=== PATIENT | female | born 1955 | race Caucasian/White ===

== ENCOUNTER 2020-07-01 09:55 | Outpatient (REF) | payer MEDICARE, BC, SELFPAY ==
--- NOTE | 2020-07-01 10:01 | MM_ITS ---
EXAMINATION: MM SCREENING DIGITAL MAMMOGRAPHY, BILATERAL CLINICAL INFORMATION: Screening. Asymptomatic. The lifetime risk of breast cancer based on the Tyrer-Cuzick Model is 5%. COMPARISON: Outside mammography: 08/31/2015, 08/02/2010 ([facility]). TECHNIQUE: Digital mammography is performed in craniocaudal and mediolateral oblique views along with computer-aided detection (CAD). FINDINGS: The breasts are heterogeneously dense, which may obscure small masses (ACR BI-RADS breast composition Category c). There are no significant masses, abnormal calcifications, or other abnormalities. Parenchymal pattern is similar to prior outside studies. The axilla are stable. The skin contours are smooth. Dermal calcifications left areola are stable. MM/MM screening mammo BI IMPRESSION: No significant changes from prior outside exams. ASSESSMENT: BI-RADS 2: Benign RECOMMENDATION: Routine annual mammography screening. This patient's information was entered into a reminder system with a target due date for their next mammogram.
== END 2020-07-01 09:56 | disposition home or self-care (01) ==
LOC: HO.MAMMO 09:55
PROVIDERS: PCP Internal Medicine; Visit Provider Internal Medicine
DX: Z12.31 Encounter for screening mammogram for malignant neoplasm of breast (principal)
CPT/HCPCS: 77067

== ENCOUNTER → 2022-08-24 10:29 | Outpatient (BNVA) | payer MEDICARE, BC, SELFPAY | PROVIDERS: PCP Internal Medicine; Visit Provider Urology | DX: N20.0 Calculus of kidney (principal) | CPT/HCPCS: 51798; 99212 ==

== ENCOUNTER 2022-09-08 08:46 | Outpatient (REF) | payer MEDICARE, BC, SELFPAY ==
--- NOTE | ~2022-09-08 | US_ITS ---
EXAMINATION: US RETROPERITONEAL LIMITED (RENAL ONLY) CLINICAL INFORMATION: Calculus of kidney. COMPARISON: Renals only ultrasound was dated 10/10/2018 and 02/26/2018. TECHNIQUE: Real-time imaging of the kidneys. Imaging is limited due to body habitus. FINDINGS: RIGHT KIDNEY: 9.4 x 3.6 x 4.0 cm (SAG x AP x TRV). The kidney is normal in size, contour, and echogenicity. Renal cortical thickness is normal. No hydronephrosis. At the upper pole, 3 mm and 3 mm nonobstructing calculi are seen. At the interpolar aspect, a 3 mm nonobstructing calculus is seen. At the lower pole, a 3 mm nonobstructing calculus is seen. At the lower pole laterally, an 8 mm anechoic, simple cyst is seen. LEFT KIDNEY: 10.6 x 4.9 x 4.9 cm (SAG x AP x TRV). The kidney is normal in size, contour, and echogenicity. Renal cortical thickness is normal. No hydronephrosis. At the lower pole, a 7 mm shadowing, nonobstructing calculus is seen. At the lower pole laterally, a 7 mm anechoic, simple cyst is seen. US/US renal BI IMPRESSION: 1. Multiple bilateral renal calculi are seen, as detailed. There is no bilateral hydronephrosis. 2. There are simple bilateral renal cysts, for which no imaging follow-up is recommended.
== END 2022-09-08 08:47 | disposition home or self-care (01) ==
LOC: HO.US 08:46
PROVIDERS: PCP Internal Medicine; Visit Provider Urology
DX: N20.0 Calculus of kidney (principal)
CPT/HCPCS: 76775

== ENCOUNTER → 2022-09-28 10:52 | Outpatient (BNVA) | payer MEDICARE, BC, SELFPAY | PROVIDERS: PCP Internal Medicine; Visit Provider Urology | DX: N20.0 Calculus of kidney (principal) | CPT/HCPCS: Q3014 ==

== ENCOUNTER 2023-03-23 07:47 | Outpatient (REF) | payer MEDICARE, BC, SELFPAY ==
--- NOTE | ~2023-03-23 | US_ITS ---
EXAMINATION: US RETROPERITONEAL LIMITED (RENAL ONLY) CLINICAL INFORMATION: Calculus of kidney. COMPARISON: Renal ultrasound 09/08/2022 and 10/10/2018. TECHNIQUE: Real-time imaging of the kidneys. Limited visualization due to bowel gas. FINDINGS: RIGHT KIDNEY: 9.3 x 3.4 x 5.5 cm (SAG x AP x TRV). No hydronephrosis. Renal calculi measure 0.4 cm upper pole, 0.5 cm midpole and 0.5 cm lower pole. Lateral lower pole 7 mm cyst redemonstrated. There is no indication for additional imaging. Renal cortical thickness is normal. LEFT KIDNEY: 11.3 x 4.6 x 5.1 cm (SAG x AP x TRV). There is a 0.5 cm left lower pole calculus. Renal cortical thickness is normal. No hydronephrosis. Left lower pole 0.9 x 0.9 x 0.8 cm lower pole cyst was not identified on the prior exam. US/US renal BI IMPRESSION: Bilateral renal calculi. No hydronephrosis.
== END 2023-03-23 07:48 | disposition home or self-care (01) ==
LOC: HO.US 07:47
PROVIDERS: PCP Internal Medicine; Visit Provider Urology
DX: N20.0 Calculus of kidney (principal)
CPT/HCPCS: 76775

== ENCOUNTER 2023-03-29 09:34 | Outpatient (AMB) | payer MEDICARE, BC, SELFPAY ==
--- NOTE | 2023-03-29 09:34 | MHC.OFFVIS ---
Intake Intake Visit Reasons: 6M US(03/23) Intake Note: Patient is present for Telephone Urology Med: None Antibiotic Allergy: None Blood Thinner: None Pharmacy: [facility] Allergies Iodinated Contrast Media [IVP DYE] Allergy (Severe, Verified 03/29/23 09:35) ANAPHYLAXIS oxycodone [OXYCODONE] Allergy (Unknown, Verified 03/29/23 09:35) ITCHING, itchy ivp dye Allergy (Unknown, Uncoded 03/29/23 09:35) Unknown Medication List - Last Reconciled 03/29/23 by Jayson Aguilar MD alprazolam 0.25 mg PO TID PRN fluocinolone-hydroq.-tretinoin 0.01-4-0.05 % (Tri-Jada) appl topical BEDTIME fluocinonide 0.05% mL topical gabapentin mg PO hydrochlorothiazide 25 mg PO DAILY hydrocodone-acetaminophen 5-325 mg tabs PO ketoconazole 2% appl topical nystatin (Nystop) topical pyridoxine (vitamin B6) 50 mg PO DAILY 90 days spironolactone 25 mg PO DAILY trazodone 50 mg PO BEDTIME HPI HPI Comments History of Present Illness Details Nahomi is a pleasant female. She is a patient of Dr. Lee. She seen for the following urologic conditions - nephrolithiasis Telemedicine Evaluation 15 min Consultation [employer] Skye Video attempted Discussed ultrasound results Small stones Start vitamin B6 Six months imaging Nephrolithiasis Longstanding Prior ESWL which was successful Has been trying to maintain fluid intake with lemon therapy Imaging - 09/18 renal ultrasound 7 mm left, multiple 3 mm stones right - 02/16 renal ultrasound bilateral 3-4 mm stones Urinary urgency and frequency. Prior evaluation. Appears to have settled down once she reduce her gabapentin dose. [facility] Medical History Autoimmune disorder HTN (hypertension) Renal stones Urgency incontinence Surgical History History of delivery History of surgery Social History Patient Tobacco Use Status: Never used Tobacco Review of Systems Const All systems reviewed & are unremarkable except as noted in HPI and below Reports no additional complaints Resp Reports no additional complaints GI Reports no additional complaints Reports as per HPI [facility] [place] Reports no additional complaints Physical Exam Telemedicine evaluation Appropriate responses Regular breathing rate and rhythm HEENT Head: Yes normal to inspection Ears: hearing grossly normal bilaterally Eyes General: appearance normal, both eyes and all related structures Neck Neck: Yes normal visual inspection Chest Chest palpation & inspection: normal inspection of the chest Resp Effort & Inspection: normal respiratory effort and able to speak in complete sentences Assessment & Plan Assessment & Plan (1) Renal stones: Code(s): N20.0 - Calculus of kidney Plan Six month follow-up Orders: Orders US renal BI 6 Months N20.0 - Calculus of kidney Medications: New pyridoxine (vitamin B6) 50 mg PO DAILY 90 days 90 tabs 1RF N20.0 - Calculus of kidney Patient Instructions: Imaging studies, laboratory and physical exam results were discussed and reviewed in detail. No major barriers to patient understanding were identified. An opportunity to ask questions regarding the treatment plan was provided. All questions were answered. The patient expressed understanding and agreement with the above treatment plan. The patient is aware they should contact our office by phone for worsening of their current condition or the appearance of new urologic symptoms. Compliance is encouraged with any medications and followup testing that is ordered. It is a privilege to participate in the urologic care of your patient. If you have any questions or concerns regarding treatment for the above conditions, or other urologic issues, please do not hesitate to contact me. The office telephone contact is [phone]. This note is constructed using voice recognition software. While every effort has been made to ensure accuracy production reproduction manager errors may have been included. Yours sincerely, Dr Jayson Aguilar MD, MUKESH [facility] - Urology Providers of Expert, Compassionate Care for the Genitourinary System Telehealth Telehealth Location of provider rendering services: practice address Location of patient: address on file Patient Identification confirmed using: Name, : Yes Telehealth method: video Patient verbally consented to treatment: Yes Patient verbally consented to billing insurance company: Yes Patient informed of any privacy concerns related to visit: Yes Coding Level of Care Code Tele Est Pt Level 3 (97517) Diagnoses Renal stones N20.0
== END 2023-03-29 09:53 | disposition home or self-care (01) ==
LOC: HO.HUSH 09:34
PROVIDERS: PCP Internal Medicine; Visit Provider Urology
DX: N20.0 Calculus of kidney (principal)
CPT/HCPCS: 99213

== ENCOUNTER → 2023-03-29 09:34 | Outpatient (BNVA) | payer MEDICARE, BC, SELFPAY | PROVIDERS: PCP Internal Medicine; Visit Provider Urology | DX: N20.0 Calculus of kidney (principal) | CPT/HCPCS: Q3014 ==

== ENCOUNTER 2023-10-29 08:17 | Outpatient (REF) | payer MEDICARE, BC, SELFPAY ==
--- NOTE | ~2023-10-29 | US_ITS ---
EXAMINATION: US RETROPERITONEAL LIMITED (RENAL ONLY) CLINICAL INFORMATION: Calculus of kidney. COMPARISON: Renal ultrasound 03/23/2023 and 09/08/2022. TECHNIQUE: Real-time imaging of the kidneys. Limited visualization due to bowel gas. FINDINGS: RIGHT KIDNEY: 9.5 x 3.8 x 4.1 cm (SAG x AP x TRV). Multiple renal calculi, largest measured midpole 2 mm. No hydronephrosis. Limited visualization. A 0.7 cm yol-ds-myvql pole cyst redemonstrated. There is no indication for follow-up imaging at this time. LEFT KIDNEY: 11.1 x 4.0 x 3.7 cm (SAG x AP x TRV). A 3 mm mid pole calculus. No hydronephrosis. Limited visualization. No hydronephrosis. A 0.9 x 1.0 x 0.8 cm lateral mid pole cyst redemonstrated. There is no indication for follow-up imaging at this time. Ultrasound of 09/08/2022 demonstrated a 0.7 cm lateral lower pole cyst which measured 0.7 cm on 03/23/2023. ADDITIONAL FINDINGS: Incidental note on limited views of a 1.6 x 1.5 x 1.7 cm soft tissue mass adjacent to splenic hilum, likely representing a splenule. US/US renal BI IMPRESSION: 1. Bilateral nonobstructive renal calculi. No hydronephrosis. 2. Incidental note on limited views of a 1.6 x 1.5 x 1.7 cm soft tissue mass adjacent to splenic hilum, likely representing a splenule.
== END 2023-10-29 08:18 | disposition home or self-care (01) ==
LOC: HO.US 08:17
PROVIDERS: PCP Internal Medicine; Visit Provider Urology
DX: N20.0 Calculus of kidney (principal)
CPT/HCPCS: 76775

== ENCOUNTER 2023-11-07 08:39 | Outpatient (AMB) | payer MEDICARE, BC, SELFPAY ==
--- NOTE | 2023-11-07 08:41 | A.OFFVIS_ITS ---
Intake Intake Visit Reasons: 6M US(set)Confirmed Intake Note: Patient presents today for a follow-up ON U/S Meds- Vitamin B6 Allergies to Antibiotic- No Known Allergies Blood Thinner- None Point Of Care Technician Required: No Allergies Iodinated Contrast Media [IVP DYE] Allergy (Severe, Verified 11/07/23 08:43) ANAPHYLAXIS oxycodone [OXYCODONE] Allergy (Unknown, Verified 11/07/23 08:43) ITCHING, itchy ivp dye Allergy (Unknown, Uncoded 11/07/23 08:43) Unknown Medication List - Last Reconciled 11/07/23 by Jayson Aguilar MD alprazolam 0.25 mg PO TID PRN fluocinolone-hydroq.-tretinoin 0.01-4-0.05 % (Tri-Jada) appl topical BEDTIME fluocinonide 0.05% mL topical gabapentin mg PO hydrochlorothiazide 25 mg PO DAILY hydrocodone-acetaminophen 5-325 mg tabs PO ketoconazole 2% appl topical nystatin (Nystop) topical pyridoxine (vitamin B6) 50 mg PO DAILY 90 days spironolactone 25 mg PO DAILY trazodone 50 mg PO BEDTIME HPI HPI Comments History of Present Illness Details Nahomi is a pleasant female. She is a patient of Dr. Lee. She seen for the following urologic conditions - nephrolithiasis Telemedicine Evaluation 15 min Consultation [employer] Skye Video attempted Six-month follow-up Has been on vitamin B6 Discussed imaging - reduced stone burden Twelve month follow-up imaging Nephrolithiasis Longstanding Prior ESWL which was successful Has been trying to maintain fluid intake with lemon therapy Imaging - 09/18 renal ultrasound 7 mm left, multi ple 3 mm stones right - 02/16 renal ultrasound bilateral 3-4 mm stones - 11/17 renal ultrasound bilateral 2 mm s tones. Reduce stone burden Urinary urgency and frequency. Prior evaluation. Appears to have settled down once she reduce her gabapentin dose. [facility] Medical History Autoimmune disorder HTN (hypertension) Urgency incontinence Renal stones Surgical History History of surgery History of delivery Social History Patient Tobacco Use Status: Never used Tobacco Review of Systems Const All systems reviewed & are unremarkable except as noted in HPI and below Reports no additional complaints Resp Reports no additional complaints GI Reports no additional complaints Reports as per HPI [facility] Reports no additional complaints Physical Exam Telemedicine evaluation Appropriate responses Regular breathing rate and rhythm HEENT Head: Yes normal to inspection Ears: hearing grossly normal bilaterally Eyes General: appearance normal, both eyes and all related structures Neck Neck: Yes normal visual inspection Chest Chest palpation & inspection: normal inspection of the chest Resp Effort & Inspection: normal respiratory effort and able to speak in complete sentences Assessment & Plan Assessment & Plan (1) Renal stones: Code(s): N20.0 - Calculus of kidney Plan Twelve month follow-up renal ultrasound Orders: Orders US renal BI 12 Months N20.0 - Calculus of kidney Medications: Refilled pyridoxine (vitamin B6) 50 mg PO DAILY 90 days 90 tabs 3RF N20.0 - Calculus of kidney Patient Instructions: Imaging studies, laboratory and physical exam results were discussed and reviewed in detail. No major barriers to patient understanding were identified. An opportunity to ask questions regarding the treatment plan was provided. All questions were answered. The patient expressed understanding and agreement with the above treatment plan. The patient is aware they should contact our office by phone for worsening of their current condition or the appearance of new urologic symptoms. Compliance is encouraged with any medications and followup testing that is ordered. It is a privilege to participate in the urologic care of your patient. If you have any questions or concerns regarding treatment for the above conditions, or other urologic issues, please do not hesitate to contact me. The office telephone contact is [phone]. This note is constructed using voice recognition software. While every effort has been made to ensure accuracy leather toggler errors may have been included. Yours sincerely, Dr Jayson Aguilar MD, MUKESH [facility] - Urology Providers of Expert, Compassionate Care for the Genitourinary System Telehealth Telehealth Location of provider rendering services: practice address Location of patient: address on file Patient Identification confirmed using: Name, : Yes Telehealth method: video Patient verbally consented to treatment: Yes Patient verbally consented to billing insurance company: Yes Patient informed of any privacy concerns related to visit: Yes Coding Level of Care Code Tele Est Pt Level 3 (04969) Diagnoses Renal stones N20.0
== END 2023-11-07 09:12 | disposition home or self-care (01) ==
LOC: HO.HUSH 08:40
PROVIDERS: PCP Internal Medicine; Visit Provider Urology
DX: N20.0 Calculus of kidney (principal)
CPT/HCPCS: 99213

== ENCOUNTER → 2023-11-07 08:39 | Outpatient (BNVA) | payer MEDICARE, BC, SELFPAY | PROVIDERS: PCP Internal Medicine; Visit Provider Urology ==

== ENCOUNTER 2024-10-25 11:08 | Outpatient (REF) | payer MEDICARE, BC, SELFPAY ==
[2024-10-25 13:40] LABS: MANUAL DIFF FLAG NO
[2024-10-25 13:41] LABS: Basophils Absolute Auto 0.1 X10*3/uL (0.0-0.2); Basophils Percent Auto 0.7 % (0-2); Eosinophils Absolute Auto 0.2 X10*3/uL (0.0-0.4); Eosinophils Percent Auto 2.5 % (0-4); Hematocrit 42.4 % (37.0-47.0); Hemoglobin 14.3 g/dl (12.0-16.0); Imm Gran Abs Auto 0.02 X10*3/uL (0.00-0.03); Imm Gran Pct Auto 0.3 % (0.0-0.4); Lymphocytes Absolute Auto 2.3 X10*3/uL (1.2-4.9); Lymphocytes Percent Auto 31.9 % (20-40); Mean Corpuscular HGB Conc 33.7 g/dl (31.0-35.0); Mean Corpuscular Hemoglobin 28.8 pg (27.0-33.0); Mean Corpuscular Volume 85.5 fL (80.0-98.0); Monocytes Absolute Auto 0.5 X10*3/uL (0.1-1.2); Monocytes Percent Auto 6.8 % (2-11); Neutrophils Absolute Auto 4.2 x10*3/uL (2.0-8.3); Neutrophils Percent Auto 57.8 % (45-73); Platelet Count 281 X10*3/uL (160-400); Red Blood Count 4.96 X10*6/uL (4.20-5.50); Red Cell Distribution Width 13.7 % (11.0-16.0); White Blood Count 7.2 X10*3/uL (4.8-10.8)
[2024-10-25 13:53] LABS: Alanine Aminotransferase 22 U/L (0-31); Albumin Level 4.2 g/dL (3.5-5.0); Alkaline Phosphatase 106 U/L (39-117); Anion Gap 13 (12-20); Aspartate Amino Transferase 24 U/L (5-31); Bilirubin Total 0.7 mg/dL (0.0-1.0); Blood Urea Nitrogen 17 mg/dL (9-16); Calcium 9.5 mg/dL (8.4-10.2); Carbon Dioxide 26 mmol/L (22-29); Chloride 104 mmol/L (96-108); Cholesterol 159 mg/dL (<200); Estimated Glomerular Filt Rate > 60; Glucose Random 119 mg/dL (60-115); HDL Cholesterol 47 mg/dL (>40); LDL Cholesterol Calculated 83 mg/dL (<100); Potassium 3.2 mmol/L (3.3-5.1); Sodium 140 mmol/L (135-145); Total Protein 7.1 g/dL (6.5-8.0); Triglycerides 145 mg/dL (<150)
== END 2024-10-25 11:09 | disposition home or self-care (01) ==
LOC: HO.HMGCLDS 11:08
PROVIDERS: PCP Internal Medicine; Visit Provider Internal Medicine
DX: E78.00 Pure hypercholesterolemia, unspecified (principal); I10 Essential (primary) hypertension; G62.9 Polyneuropathy, unspecified; G35 Multiple sclerosis
CPT/HCPCS: 36415; 80053; 80061; 85025

== ENCOUNTER 2024-10-29 12:10 | Outpatient (REF) | payer MEDICARE, BC, SELFPAY ==
--- NOTE | ~2024-10-29 | US_ITS ---
CLINICAL HISTORY: N20.0 - Calculus of kidney US Renal Comparison: None Findings: Right kidney normal size and echotexture, 9.6 cm length. Left kidney normal size and echotexture, 11.1 cm length. No hydronephrosis. Two small bilateral renal simple cysts measuring up to 11 mm. At least a few small (up to 5 mm) nonobstructive left renal stones, and questionable small nonobstructive right renal stones. IMPRESSION: No hydronephrosis. At least a few small (up to 5 mm) nonobstructive left renal stones, and questionable small nonobstructive right renal stones. This document has been electronically signed by: Flavia Rondon MD on 10/31/2024 05:59:41
--- OUTSIDE RECORDS SUMMARY | 2024-10-29 14:33 | XMS_ITS | Continuity of Care Document ---
Author Organization [facility] Gopi Brower Roel lt Address [address] [place] [address]- Care Team Providers Care Park Naturalist Name Role Phone Rosa SANCHEZ, Emiliano Allen Primary Care Physician [phone] [place] [facility] Date(s): 09/26/24 - 10/26/24 [facility] [place] [address] [place] [address]- Encounter Type: Triage Allergies, Adverse Reactions, Alerts Substance Criticality Severity Reaction Reaction Severity Status contrast media (iodine-based) Active Immunizations Given and Recorded Vaccine Date Status Refusal Reason pneumococcal 20-valent conjugate vaccine 07/10/23 Given influenza virus vaccine, inactivated 05/14/23 You rded influenza virus vaccine, inactivated 05/17/22 You rded influenza virus vaccine, inactivated 05/09/21 You rded influenza virus vaccine, inactivated 05/25/20 You rded influenza virus vaccine, inactivated 05/07/18 You rded influenza virus vaccine, inactivated 05/09/16 You rded influenza virus vaccine, inactivated 06/16/15 You rded influenza virus vaccine, inactivated 07/07/13 You rded influenza virus vaccine, inactivated 07/08/12 You rded SARS-CoV-2(COVID-19)mRNA-LNP vac([id number]) 05/14/23 Recorded [id number] 12y+ bivalent booster vax 01/04/23 Recorded [id number] 12y+ bivalent booster vax 05/17/22 Recorded SARS-CoV-2 mRNA ([id number]) vax 12/26/21 Recorded tetanus/diphtheria/pertussis, acel(Tdap) 06/25/21 Recorded SARS-CoV-2 (COVID-19) mRNA BNT-162b2 vac 06/01/21 Recorded SARS-CoV-2 (COVID-19) mRNA BNT-162b2 vac 11/27/20 Given SARS-CoV-2 (COVID-19) mRNA BNT-162b2 vac 11/06/20 Given zoster vaccine, inactivated 10/30/18 Recorded pneumococcal 23-valent vaccine 06/25/18 Recorded pneumococcal 13-valent vaccine 10/24/16 Recorded Medications acetaminophen-HYDROcodone 325 mg-5 mg oral tablet 1 tablet, By Mouth, Every 6 hours, PRN as needed for pain, # 90 each, 0 Refills, Maintenance, 06/06/24 2:40:00 PM EDT, Tablet, [facility] #[id number], Partial fill upon patient request if the prescription is for a schedule II opioid drug., 1 tablet By Mouth Every 6 hours,PRN:as needed for pain, 06/06/24, 150, cm, 01/23/24 7:54:00 EDT, Height, 59.7, kg, 06/11/23 13:16:00 EDT, Dry Weight Start Date: 06/06/24 Status: Ordered Quantity: 90.0 Unit: each Repeat number: 1 ALPRAZolam 0.25 mg oral tablet 0.25 mg, 1, tablet, By Mouth, 3 times a day, PRN, # 90 tablet, Refills 0, Tot. Refills 0, Maintenance, as needed for anxiety, 07/03/24 11:45:00 AM EST, Route to Pharmacy Electronically, [facility] #[id number], Partial fill upon patient request if the prescription is for a schedule II opioid drug., 150, cm, 01/23/24 7:54:00 EDT, Height, 59.7, kg, 06/11/23 13:16:00 EDT, Dry Weight Start Date: 07/03/24 Status: Ordered Quantity: 90.0 Unit: tablet Repeat number: 1 hydrochlorothiazide 25 mg oral tablet 1, tablet, By Mouth, Daily, # 90 tablet, Refills 1, Tot. Refills 1, Maintenance, 09/26/24 11:36:00 AM EST, Route to Pharmacy Electronically, [facility] #[id number], 150, cm, 01/23/24 7:54:00 EDT,Height, 59.7, kg, 06/11/23 13:16:00 EDT, Dry Weight Start Date: 09/26/24 Status: Ordered Quantity: 90.0 Unit: tablet Repeat number: 2 ketoconazole 2% topical cream Topically, Daily, 0 Refills, Maintenance, 05/29/22 8:43:00 AM EDT, Partial fill upon patient requestif the prescription is for a schedule II opioid drug. Start Date: 05/29/22 Status: Ordered Repeat number: 1 Multivitamin By Mouth, Daily, 0 Refills, Maintenance, 03/20/13 9:16:19 AM EDT Start Date: 03/20/13 Status: Ordered Repeat number: 1 Neurontin 600 mg oral tablet 1 tablet = 600 mg, By Mouth, 3 times a day, PRN neuropathy pain, # 270 tablet, 3 Refills, Maintenance, 02/01/22 8:13:00 AM EDT, Tablet, [facility] #[id number], Partial fill upon patient request ifthe prescription is for a schedule II opioid drug., 150, cm, 02/01/22 8:03:00 EDT, Height Start Date: 02/01/22 Stop Date: 01/27/23 Status: Ordered Quantity: 270.0 Unit: tablet Repeat number: 4 rosuvastatin 5 mg oral tablet 1 tablet, By Mouth, Daily, # 90 tablet, 1 Refills, Maintenance, 06/28/24 10:58:00 AM EDT, [facility] #[id number], 150, cm, 01/23/24 7:54:00 EDT, Height, 59.7, kg, 06/11/23 13:16:00 EDT, Dry Weight Start Date: 06/28/24 Status: Ordered Quantity: 90.0 Unit: tablet Repeat number: 1 sertraline 25 mg oral tablet 1 tablet, By Mouth, Daily, # 90 tablet, 3 Refills, Maintenance, 06/30/24 8:44:00 AM EST, [facility] #[id number], 150, cm, 01/23/24 7:54:00 EDT, Height, 59.7, kg, 06/11/23 13:16:00 EDT, Dry Weight Start Date: 06/30/24 Status: Ordered Quantity: 90.0 Unit: tablet Repeat number: 1 spironolactone 25 mg oral tablet 1, tablet, By Mouth, Daily, # 90 tablet, Refills 1, Tot. Refills 1, Maintenance, 09/26/24 11:36:00 AM EST, Route to Pharmacy Electronically, [facility] #[id number], 150, cm, 01/23/24 7:54:00 EDT,Height, 59.7, kg, 06/11/23 13:16:00 EDT, Dry Weight Start Date: 09/26/24 Status: Ordered Quantity: 90.0 Unit: tablet Repeat number: 2 traZODone 50 mg oral tablet 1, tablet, By Mouth, Daily at bedtime, # 90 tablet, Refills 1, Maintenance, 07/09/23 10:19:00 AM EST, Route to Pharmacy Electronically, [facility] #[id number], 150, cm, 06/11/23 13:16:00 EDT, Height, 59.7, kg, 06/11/23 13:16:00 EDT, Dry Weight Start Date: 07/09/23 Status: Ordered Quantity: 90.0 Unit: tablet Repeat number: 1 Vitamin B12 0 Refills, Maintenance, 07/10/23 2:24:00 PM EST, Partial fill upon patient request if the prescription is for a schedule II opioid drug. Start Date: 07/10/23 Status: Ordered Repeat number: 1 Problem List Condition Confirmation Course Effective Dates Status Health Status Informant Adenomatous polyp of colon 1 Confirmed Active Anxiety Confirmed Active Benign hypertension Confirmed Active IPMN (intraductal papillary mucinous neoplasm) Confirmed Active Chronic low back pain Confirmed Active Renal cyst Confirmed Active Osteoarthritis, generalized Confirmed Active Glucose intolerance Confirmed Active H/O insomnia Confirmed Active Liver hemangioma Confirmed Active Hypercholesterolemia Confirmed Active High blood pressure Confirmed Active Nephrolithiasis Confirmed Active Multiple sclerosis Confirmed Active Palpitations - rapid Confirmed Active Encounter for well woman exam with routine gynecological exam Confirmed Active Neuropathy, peripheral Confirmed Active Severe obesity (BMI 35.0-39.9) with comorbidity Confirmed Active 1Colonoscopy 2020 positive polyp, repeat 2025. Social History Social History Type Response Smoking Status Never (less than 100 in lifetime) entered on: 02/01/22 Sex Sex Representation Female (finding) Patient Care team information Care Team Personnel Name: Rosa SANCHEZ, Emiliano Allen Position: S Physician - Primary Care Member Role: PCP Address: [address] [place] [id number] Telecom: Care Team Related Persons Name: GERSON DE LA CRUZ Insurance Providers Guarantor name: ILENE SIMMONS Health Plan Information #: 1 Payer: MEDICARE PART B OUTPT Member Number: NA Policy Number: NA Group Number: NA Health Plan Information #: 2 Payer: [employer] Member Number: NA Policy Number: NA Group Number: NA
== END 2024-10-29 12:11 | disposition home or self-care (01) ==
LOC: HO.US 12:10
PROVIDERS: PCP Internal Medicine; Visit Provider Urology
DX: N20.0 Calculus of kidney (principal)
CPT/HCPCS: 76775

== ENCOUNTER → 2024-10-29 12:12 | Outpatient (BNV) | payer MEDICARE, BC, SELFPAY | PROVIDERS: PCP Internal Medicine; Visit Provider Radiology Diagnostic Radiology | DX: N20.0 Calculus of kidney (principal) | CPT/HCPCS: 76775 ==

== ENCOUNTER 2024-11-21 13:09 | Outpatient (AMB) | payer MEDICARE, BC, SELFPAY ==
--- NOTE | 2024-11-21 13:09 | A.OFFVIS_ITS ---
Intake Visit Reasons: 1y/US Intake Note: Pt presents to the office today as a telehealth appt for a 1 year/US. Allergies Iodinated Contrast Media [IVP DYE] Allergy (Severe, Verified 11/21/24 13:10) ANAPHYLAXIS oxycodone [OXYCODONE] Allergy (Unknown, Verified 11/21/24 13:10) ITCHING, itchy ivp dye Allergy (Unknown, Uncoded 11/21/24 13:10) Unknown HPI Comments Details: Nahomi is a pleasant female. She is a patient of Dr. Lee. She seen for the following urologic conditions - nephrolithiasis Telemedicine Evaluation 15 min Consultation DoximMedPro Skye Video attempted Has been on vitamin B6 Discussed imaging - reduced stone burden Twelve month follow-up imaging Nephrolithiasis Longstanding Prior ESWL which was successful Has been trying to maintain fluid intake with lemon therapy Imaging - 09/18 renal ultrasound 7 mm left, multiple 3 mm stones right - 02/16 renal ultrasound bilateral 3-4 mm stones - 11/17 renal ultrasound bilateral 2 mm stones. Reduce stone burden - 11/18 renal ultrasound bilateral stones Urinary urgency and frequency. Prior evaluation. Appears to have settled down once she reduce her gabapentin dose. [facility] Medical History Autoimmune disorder HTN (hypertension) Urgency incontinence Renal stones Surgical History History of surgery History of delivery Social History Patient Tobacco Use Status: Never used Tobacco Review of Systems Const All systems reviewed & are unremarkable except as noted in HPI and below Reports no additional complaints Resp Reports no additional complaints GI Reports no additional complaints Reports as per HPI Musc Reports no additional complaints Physical Exam Telemedicine evaluation Appropriate responses Regular breathing rate and rhythm HEENT Head: Yes normal to inspection Ears: hearing grossly normal bilaterally Eyes General: appearance normal, both eyes and all related structures Neck Neck: Yes normal visual inspection Chest Chest palpation & inspection: normal inspection of the chest Resp Effort & Inspection: normal respiratory effort and able to speak in complete sentences Telehealth Telehealth Telehealth Platform: Telephone Location of provider rendering services: practice address Location of patient: address on file Patient Identification confirmed using: Name, : Yes Telehealth method: voice only Patient verbally consented to treatment: Yes Patient verbally consented to billing insurance company: Yes Patient informed of any privacy concerns related to visit: Yes Assessment & Plan Assessment & Plan (1) Renal stones: Code(s): N20.0 - Calculus of kidney Category: Medical Plan Refill medications Yearly review Orders: Orders US renal BI 12 Months N20.0 - Calculus of kidney Medications: Refilled pyridoxine (vitamin B6) 50 mg PO DAILY 90 days 90 tabs 3RF N20.0 - Calculus of kidney Patient Instructions: This note is constructed using voice recognition software. While every effort h as been made to ensure accuracy delivery technician errors may have been included. Imaging studies, laboratory and physical exam results were discussed and reviewed in detail. No major barriers to patient understanding were identified. An opportunity to ask questions regarding the treatment plan was provided. All questions were answered. The patient expressed understanding and agreement with the above treatment plan. The patient is aware they should contact our office by phone for worsening of their current condition or the appearance of new urologic symptoms. Compliance is encouraged with any medications and followup testing that is ordered. It is a privilege to participate in the urologic care of your patient. If you have any questions or concerns regarding treatment for the above conditions, or other urologic issues, please do not hesitate to contact me. The office telephone contact is [phone]. Sincerely, Dr Jayson Aguilar MD, MUKESH [facility] - Urology Compassionate Specialist Care for the Genitourinary System Coding Level of Care Code Est Pt Level 4 (16143) Complex EM visit Add On G2211 Diagnoses Renal stones N20.0
== END 2024-11-21 14:26 | disposition home or self-care (01) ==
LOC: HO.HUSH 13:09
PROVIDERS: PCP Internal Medicine; Visit Provider Urology
DX: N20.0 Calculus of kidney (principal)
CPT/HCPCS: 99214; G2211

== ENCOUNTER → 2024-11-21 13:09 | Outpatient (BNVA) | payer MEDICARE, BC, SELFPAY | PROVIDERS: PCP Internal Medicine; Visit Provider Urology | DX: N20.0 Calculus of kidney (principal) | CPT/HCPCS: 99212 ==

== ENCOUNTER 2025-05-29 08:45 | Outpatient (REF) | payer MEDICARE, BC, SELFPAY ==
--- OUTSIDE RECORDS SUMMARY | 2025-05-29 09:09 | XMS_ITS | Clinical Summary ---
Author Organization [facility] Address [address] [place] [address] Care Team Providers Care Box Maker Name Role Phone Emiliano Lee MD Primary Care Provider [phone] Allergies Active Allergy Reactions Criticality Noted Date Comments Iodinated Contrast Media Unknown/Patient and Family Unable to Define Medium 11/27/2001 Oxycodone-Acetaminophen Itching Low 08/05/2015 Medications ALPRAZolam (XANAX) 0.25 MG tablet Take 0.25 mg by mouth. 5 Active gabapentin (NEURONTIN) 600 MG tablet TAKE 1 TABLET BY MOUTH THREE TIMES DAILY NEEDED FOR NERVE PAIN Active ketoconazole (NIZORAL) 2 % cream APPLY TWICE DAILY TO AFFECTED AREAS UNTIL CLEAR 5 Active Klayesta 898135 UNIT/GM powder 5 Active Vitamin B6 50 MG tablet Take 50 mg by mouth. 5 Active rosuvastatin (CRESTOR) 5 MG tablet Take 5 mg by mouth. Active sertraline (ZOLOFT) 25 MG tablet Take 25 mg by mouth daily. Active spironolactone (ALDACTONE) 25 MG tablet Take 25 mg by mouth daily. Active HYDROcodone-malathi taminophen (NORCO) 5-325 mg per tablet Take 1 tablet by mouth 4 times daily (every 6 hours) as needed for severe pain. Active HYDROcodone-malathi taminophen (NORCO) 5-325 mg per tablet Take 1 tablet by mouth. 5 05/04/20 25 Discontinu ed(Med List Clean-up/O ld Med - No E-Cancel/N o AVS) Encounters Date Type Department Care Team Description 05/04/2025 2:30 PM EDT Consult [address] [place] [address] Otoniel Mendiola MD IPMN (intraductal papillary mucinous neoplasm) (Primary Dx); History of colon polyps 05/04/2025 Orders Only [facility] [address] [facility] [address] [address] [place] [address] Maria E Sanchez MA from Last 3 Months Family History Medical History Relation Name Comments Hypertension Father Lung cancer Father Stroke Father Heart attack Maternal Grandfather Heart disease Maternal Grandfather Hypertension Maternal Grandfather Stroke Maternal Grandmother Breast cancer Mother Multiple sclerosis Mother Thyroid cancer Mother Colon cancer Other Hypertension Paternal Grandfather Pancreatic cancer Paternal Grandfather Multiple sclerosis Sister Relation Name Status Comments Father Maternal Grandfather Maternal Grandmother Mother Other Paternal Grandfather Sister Social History Tobacco Use Types Packs/Day Years Used Date Smoking Tobacco: Never Smokeless Tobacco: Never Tobacco Cessation:Counseling Given: Not Answered Alcohol Use Standard Drinks/Week Comments Yes 2 (1 standard drink = 0.6 oz pur e alcohol) Comments Unknown Sex and Gender Information Value Date Recorded Sex Assigned at Not on file Legal Sex Female 2:52 PM EDT Gender Identity Not on file Sexual Orientation Not on file Last Filed Vital Signs Vital Sign Reading Time Taken Comments Blood Pressure 118/86 05/04/2025 2:32 PM EDT Pulse - - Temperature - - Respiratory Rate - - Oxygen Saturation - - Inhaled Oxygen Concentration - - Weight 78.9 kg (174 lb) 05/04/2025 2:32 PM EDT Height 152.4 cm (5') 05/04/2025 2:32 PM EDT Body Mass Index 33.98 05/04/2025 2:32 PM EDT Plan of Treatment Health Maintenance Due Date Last Done Comments Advance Care Planning 1955 Hepatitis C Virus Screening 1955 DTaP/Tdap/Td Vaccines (1 - Tdap) 1973 Mammogram 1994 Colonoscopy 1999 Pneumococcal Vaccines 50+ (1 of 1 - PCV) 2004 Zoster (Shingles) Vaccine (1 of 2) 2004 RSV Vaccine 60 years and older and Patients (1 - Risk 60-74 years 1-dose series) 2014 DXA Bone Density (Females,Ages 65 and older) 2019 Influenza Vaccine 03/27/2025 05/16/2024, , 05/17/2022, Additional history exists COVID-19 Vaccine ( season) 2025 05/16/2024, 05/14/2023, 12/26/2021, Additional history exists Hepatitis B Vaccines Aged Out No long er eligible based on patient's age to complete this topic Insurance [facility] MEDICARE PART A & B Care Teams Box Maker Relationship Specialty Start Date End Date Emiliano Lee MD [address] [place] [id number] PCP - General Internal Medicine 01/12/25
--- OUTSIDE RECORDS SUMMARY | 2025-05-29 09:10 | XMS_ITS | Encounter Summary ---
Author Organization [facility] Address [address] [place] [address] Phone Care Team Providers Care Take Off Worker Name Role Phone Carrol Stinson MD Primary Care Provi mady Unknown, Unknown Primary Care Provider Jadiel diaz Encounter Details Date Type Department Care Team (Late st Contact Info) Description 06/22/2021 Procedure Pass [facility] Endoscopy Admitting Dept Virtual Department [address] [place] [address] Social History Tobacco Use Types Packs/Day Years Used Date Smoking Tobacco: Never Smokeless Tobacco: Never Alcohol Use Standard Drinks/Week Comments Yes 1 (1 standard drink = 0.6 oz pur e alcohol) Comments Unknown Sex and Gender Information Value Date Recorded Sex Assigned at Not on file Legal Sex Female 6:21 PM EST Gender Identity Not on file Sexual Orientation Not on file documented as of this encounter Plan of Treatment Not on file documented as of this encounter Visit Diagnoses Not on filedocumented in this encounter Care Teams Take Off Worker Relationship Specialty Start Date End Date Carrol Stinson MD [email or web address] PCP - General Internal Medicine 09/28/17 Unknown, Unknown, PCP - General 08/04/22 documented as of this encounter Additional Source Comments The information contained in this document represents components of the legal health record. It is not the complete legal health record.[facility]
--- OUTSIDE RECORDS SUMMARY | 2025-05-29 09:11 | XMS_ITS | Encounter Summary ---
Author Organization [facility] Address [address] [place] [address] Phone Care Team Providers Care Second Grade Teacher Name Role Phone Carrol Stinson MD Primary Care Provi mady Unknown, Unknown Primary Care Provider Jadiel diaz Encounter Details Date Type Department Care Team (Late st Contact Info) Description 06/11/2018 Transcribe Orders [facility] Laboratory [address] [place] [address] Carrol Stinson MD [address] [place], [place] [id number] [email or web address] Pancreatic abnormality (Primary Dx) Social History Tobacco Use Types Packs/Day Years Used Date Smoking Tobacco: Never Smokeless Tobacco: Never Comments Unknown Sex and Gender Information Value Date Recorded Sex Assigned at Not on file Legal Sex Female 6:21 PM EST Gender Identity Not on file Sexual Orientation Not on file documented as of this encounter Plan of Treatment Not on file documented as of this encounter Results * (ABNORMAL) 25-OH vitamin D (06/11/2018 11:25 AM EDT) 25 OH VIT D (TOTAL) 26(L) 30 - 60 ng/mL [facility] Blood 06/11/2018 11:2 5 AM EDT 06/11/2018 11:39 AM EDT us Carrol Stinson MD LAB BLOOD ORDERABLE S Final Result [address] [address] * Vitamin B12 (06/11/2018 11:25 AM EDT) VITAMIN B12 580 232 - 1,245 pg/mL [facility] Blood 06/11/2018 11:2 5 AM EDT 06/11/2018 11:39 AM EDT Carrol Stinson MD LAB BLOOD ORDERABLE S Final Result Performing Organization Address City/[facility]/ZIP Co de Phone Number [address] [address] * TSH with reflex (06/11/2018 11:25 AM EDT) TSH 1.89 0.27 - 4.20 uIU/mL [facility] Blood 06/11/2018 11:2 5 AM EDT 06/11/2018 11:39 AM EDT us Carrol Stinson MD LAB BLOOD ORDERABLE S Final Result Performing Organization Address City/[facility]/ZIP Co de Phone Number [address] [address] * (ABNORMAL) Comprehensive metabolic panel (06/11/2018 11:25 AM EDT) SODIUM 143 133 - 146 mmol/L [facility] POTASSIUM 3.2(L) 3.3 - 5.1 mmol/L [facility] CHLORIDE 100 96 - 108 mmol/L [facility] CO2 31 21 - 35 mmol/L [facility] BUN 12 6 - 19 mg/dL [facility] CREATININE 0.70 0.5 - 1.5 mg/dL [facility] GLUCOSE 96 70 - 99 mg/dL [facility] ALBUMIN 4.1 3.9 - 4.8 g/dL [facility] TOTAL PROTEIN 6.0(L) 6.5 - 8.0 g/dL [facility] CALCIUM 9.1 8.4 - 10.3 mg/dL [facility] ALKALINE PHOSPHATASE 101 39 - 117 U/L [facility] TOTAL BILIRUBIN 0.4 0.0 - 1.2 mg/dL [facility] AST 15 0 - 37 U/L [facility] ALT 15 0 - 40 U/L [facility] GLOBULIN 1.9 1 - 4.8 g/dL [facility] EGFR 92 >59 mL/min/1.7 3m2 [facility] Comment:If patient is black, multiply result by 1.159. Estimated glomerular filtration rate calculated using the CKD-EPI equation. ANION GAP 15 10 - 20 mmol/L [facility] Blood 06/11/2018 11:2 5 AM EDT 06/11/2018 11:39 AM EDT us Carrol Stinson MD LAB BLOOD ORDERABLE S Final Result [address] [address] documented in this encounter Visit Diagnoses Diagnosis Pancreatic abnormality- Primary documented in this encounter Care Teams Second Grade Teacher Relationship Specialty Start Date End Date Carrol Stinson MD [email or web address] PCP - General Internal Medicine 09/28/17 Unknown, Unknown, PCP - General 08/04/22 documented as of this encounter Additional Source Comments The information contained in this document represents components of the legal health record. It is not the complete legal health record.[facility]
--- OUTSIDE RECORDS SUMMARY | 2025-05-29 09:11 | XMS_ITS | Encounter Summary ---
Author Organization [facility] Address [address] [place] [address] Phone Care Team Providers Care Relief Cook Name Role Phone Carrol Stinson MD Primary Care Provi mady Unknown, Unknown Primary Care Provider Jadiel diaz Encounter Details Date Type Department Care Team (Latest Contact Info) Description 07/10/2022 Transcribe Orders Virtual Department [address] [place] [address] Marcus Reeves MD [address] [place] [phone] [email or web address] IPMN (intraductal papillary mucinous neoplasm) (Primary Dx) Social History Tobacco Use Types [...] documented as of this encounter Visit Diagnoses Diagnosis IPMN (intraductal papillary mucinous neoplasm)- Primary Neoplasm of unspecified nature of digestive system documented in this encounter Care Teams Relief Cook Relationship Specialty Start Date End Date Carrol Stinson MD [email or web address] PCP - General Internal Medicine 09/28/17 Unknown, Unknown, MD PCP - General 08/04/22 documented as of this encounter Additional Source Comments The information contained in this document represents components of the legal health record. It is not the complete legal health record.[facility]
--- OUTSIDE RECORDS SUMMARY | 2025-05-29 09:11 | XMS_ITS | Encounter Summary ---
Author Organization [facility] Address [address] [place] [address] Phone Care Team Providers Care Chisel Trimmer Name Role Phone Carrol tSinson MD Primary Care Provi mady Unknown, Unknown Primary Care Provider Jadiel diaz Encounter Details Date Type Department Care Team (Late st Contact Info) Description 07/10/2022 Procedure Pass [facility], [address] [address] Social History Tobacco Use Types Packs/Day Years [...] on filedocumented in this encounter Care Teams Chisel Trimmer Relationship Specialty Start Date End Date Carrol Stinson MD [email or web address] PCP - General Internal Medicine 09/28/17 Unknown, Unknown, PCP - General 08/04/22 documented as of this encounter Additional Source Comments The information contained in this document represents components of the legal health record. It is not the complete legal health record.[facility]
--- OUTSIDE RECORDS SUMMARY | 2025-05-29 09:11 | XMS_ITS | Encounter Summary ---
Author Organization [facility] Address [address] [place] [address] Phone Care Team Providers Care Director Of Consumer Affairs Name Role Phone Carrol Stinson MD Primary Care Provi mady Unknown, Unknown Primary Care Provider Jadiel diaz Reason for Referral * MRI/CAT Scan - Closed Specialty Diagnoses / Procedures Referred By Sana baker Referred To Contact Radiology Diagnoses Liver lesion IPMN (intraductal papillary mucinous neoplasm) Elevated LFTs Procedures MRI Abdomen Marcus Reeves MD Phone: tel: fax: [email or web address] Referral ID Status Reason Start Date Expiration Date Visits Re quested Visits Authorized [id number] Closed 04/17/2018 04/17/2019 1 1 Encounter Details Date Type Department Care Team (Late st Contact Info) Description 04/17/2018 Ancillary Orders Virtual Department [address] [place] [address] Marcus Reeves MD [address] [place] [phone] [email or web address] Liver lesion; IPMN (intraductal papillary mucinous neoplasm); Elevated LFTs Social History Tobacco Use Types Packs/Day Years [...] documented as of this encounter Results * MRI ABDOMEN WITH AND WITHOUT CONTRAST (04/26/2018 9:27 AM EDT) Anatomical Region Laterality Modality Abdomen Magnetic Resonan ce 04/26/2018 3:15 PM EDT Impressions 04/26/2018 4:47 PM EDT 1. Small arterially enhancing mass in the inferior right lobe of the liver, stable dating back to 11/04/2012 MRI, and is certainly benign. No suspicious new lesions in the liver. 2. Nonenhancing cystic lesions in the pancreas are stable dating back to 11/04/2012 and also certainly benign, possibly IPMN versus pancreatic cysts. POS [id number] Narrative 04/26/2018 4:47 PM EDT HISTORY: Follow-up, I p.m. and. History of autoimmune syndrome. COMPARISON: Prior MRIs 11/04/2012, 10/08/2013, 03/26/2015, 09/20/2017. TECHNIQUE: Exam performed on a 1.5 Tatianna high-field MRI scanner. Axial T1 in and out of phase, T2, extended TE T2, and T1 with fat suppression, coronal T2, followed by post-gadolinium multi-phase axial T1 series with fat suppression sequences were obtained through the liver. FINDINGS: Liver/spleen: The liver is normal in size and contour. There is no evidence for fatty infiltration. The T2 hyperintense, T1 hypointense arterially enhancing mass in the inferior right lobe of liver is stable, measuring approximately 10 x 10 mm. Stable tiny nonenhancing cyst in the superior right lobe of the liver. There are no new findings in the liver. Normal size and signal of the spleen. Pancreas/biliary tree/gallbladder: The T2 bright, T1 hypointense cystic lesion in the pancreatic tail measures 9-10 mm, unchanged compared with the prior MRIs. Several additional T2 bright, T1 hypointense cystic lesions within the pancreatic head also appears stable together measuring 15 mm in maximal diameter. There is no suspicious enhancement. Normal diameter of the main pancreatic duct. There is no intrahepatic or extrahepatic biliary ductal dilatation. No suspicious filling defects within the common bile duct. Normal gallbladder. No gallstones. Adrenals/kidneys: Normal adrenal glands. Tiny cyst in the upper pole right kidney has developed T1 hyperintensity consistent with proteinaceous debris. No suspicious enhancement in the kidneys. Other findings: No ascites or adenopathy in the abdomen. Normal caliber of the abdominal aorta. Normal enhancement of the portal veins and hepatic veins. Procedure Note Seema Correa MD - 04/26/2018 HISTORY: Follow-up, I p.m. and. History of autoimmune syndrome. COMPARISON: Prior MRIs 11/04/2012, 10/08/2013, 03/26/2015, 09/20/2017. TECHNIQUE: Exam performed on a 1.5 Tatianna high-field MRI scanner. Axial T1in and out of phase, T2, extended TE T2, and T1 with fat suppression,coronal T2, followed by post-gadolinium multi-phase axial T1 series withfat suppression sequences were obtained through the liver. FINDINGS: Liver/spleen: The liver is normal in size and contour. There is noevidence for fatty infiltration. The T2 hyperintense, T1 hypointensearterially enhancing mass in the inferior right lobe of liver is stable,measuring approximately 10 x 10 mm. Stable tiny nonenhancing cyst in thesuperior right lobe of the liver. There are no new findings in the liver.Normal size and signal of the spleen. Pancreas/biliary tree/gallbladder: The T2 bright, T1 hypointense cysticlesion in the pancreatic tail measures 9-10 mm, unchanged compared withthe prior MRIs. Several additional T2 bright, T1 hypointense cysticlesions within the pancreatic head also appears stable together jawonrypo71 mm in maximal diameter. There is no suspicious enhancement. Normaldiameter of the main pancreatic duct. There is no intrahepatic orextrahepatic biliary ductal dilatation. No suspicious filling defectswithin the common bile duct. Normal gallbladder. No gallstones. Adrenals/kidneys: Normal adrenal glands. Tiny cyst in the upper pole rightkidney has developed T1 hyperintensity consistent with proteinaceousdebris. No suspicious enhancement in the kidneys. Other findings: No ascites or adenopathy in the abdomen. Normal caliber ofthe abdominal aorta. Normal enhancement of the portal veins and hepaticveins. IMPRESSION: 1. Small arterially enhancing mass in the inferior right lobe of theliver, stable dating back to 11/04/2012 MRI, and is certainly benign. Nosuspicious new lesions in the liver. 2. Nonenhancing cystic lesions in the pancreas are stable dating back to11/04/2012 and also certainly benign, possibly IPMN versus pancreaticcysts. POS [id number] Marcus Reeves MD IMG MR ABDOMEN Final Result documented in this encounter Visit Diagnoses Diagnosis Liver lesion Other specified disorders of liver IPMN (intraductal papillary mucinous neoplasm) Neoplasm of unspecified nature of digestive system Elevated LFTs Other abnormal blood chemistry Liver lesion Other specified disorders of liver IPMN (intraductal papillary mucinous neoplasm) Neoplasm of unspecified nature of digestive system Elevated LFTs Other abnormal blood chemistry documented in this encounter Care Teams Director Of Consumer Affairs Relationship Specialty Start Date End Date Carrol Stinson MD [email or web address] PCP - General Internal Medicine 09/28/17 Unknown, Jennifer, PCP - General 08/04/22 documented as of this encounter Additional Source Comments The information contained in this document represents components of the legal health record. It is not the complete legal health record.[facility]
--- OUTSIDE RECORDS SUMMARY | 2025-05-29 09:11 | XMS_ITS | Encounter Summary ---
Author Organization [facility] Address [address] [place] [phone] Phone Care Team Providers Care Kennel Helper Name Role Phone Unknown, Unknown Primary Care Provider Jadiel diaz Encounter Details Date Type Department Care Team (Late st Contact Info) Description 03/20/2024 Procedure Pass [facility], [address] [address] Social History Tobacco Use Types Packs/Day Years Used Date Smoking Tobacco: Never Smokeless Tobacco: Never Alcohol Use Standard Drinks/Week Comments Yes 1 (1 standard drink = 0.6 oz pur e alcohol) Education Answer Date Recorded Are you interested in more education? Not on marilyn e 01/07/2023 Are you concerned about learning? Not on file 01/07/2023 No 01/07/2023 No 01/07/2023 Digital Access Answer Date Recorded No 01/21/2023 No 01/21/2023 Reliable internet access at home? Not on file 01/21/2023 Device with a working camera? Not on file Comments Unknown Sex and Gender Information Value Date Recorded Sex Assigned at Not on file Legal Sex Female 6:21 PM EST Gender Identity Not on file Sexual Orientation Not on file documented as of this encounter Plan of Treatment Not on file documented as of this encounter Visit Diagnoses Not on filedocumented in this encounter Care Teams Kennel Helper Relationship Specialty Start Date End Date Unknown, Unknown, PCP - General 08/04/22 documented as of this encounter Additional Source Comments The information contained in this document represents components of the legal health record. It is not the complete legal health record.[facility]
--- OUTSIDE RECORDS SUMMARY | 2025-05-29 09:11 | XMS_ITS | Encounter Summary ---
Author Organization [facility] Address [address] [place] [phone] Phone Care Team Providers Care Curator Of Photography And Prints Name Role Phone Unknown, Unknown Primary Care Provider Jadiel diaz Reason for Referral * MRI/CAT Scan - Closed Specialty Diagnoses / Procedures Referred By Sana baker Referred To Contact Radiology Diagnoses IPMN (intraductal papillary mucinous neoplasm) Procedures MRI Cholangiopancreatography (MRCP) MRI Abdomen Marcus Reeves MD Phone: tel: fax: [email or web address]:[email or web address] Referral ID Status Reason Start Date Expiration Date Visits Re quested Visits Authorized [id number] Closed 07/10/2022 07/10/2023 1 1 Encounter Details Date Type Department Care Team (Late st Contact Info) Description 08/04/2022 Ancillary Orders Virtual Department [address] [place] [address] Marcus Reeves MD [address] [place] [phone] [email or web address] IPMN (intraductal papillary mucinous neoplasm) Social History Tobacco Use Types Packs/Day Years [...] as of this encounter Results * MRI CHOLANGIOPANCREATOGRAPHY (MRCP) WITH AND WITHOUT CONTRAST (08/04/2022 9:01 AM EST) Anatomical Region Laterality Modality Pancreas, Biliary Magnetic Reson ance 08/04/2022 12:3 4 PM EST Impressions 08/04/2022 2:22 PM EST 1. Stable appearance to cystic pancreatic lesions affecting pancreatic head and distal body/tail, without pancreatic ductal dilation, features which favor sidebranch nonmalignant IPMN. 2. No concerning incidental abnormality. Narrative 08/04/2022 2:22 PM EST MRI CHOLANGIOPANCREATOGRAPHY (MRCP) WITH AND WITHOUT CONTRAST History: Follow-up cystic pancreatic masses (IPMN). TECHNIQUE: Multiplanar MR imaging of the abdomen was performed using T1, T2, fat saturated, and diffusion weighted techniques. 2D and 3D MRCP sequences were performed. Dynamic multiphase imaging was also performed after administration of an intravenous gadolinium contrast agent. COMPARISON: Multiple preceding MR abdomen studies, most recently from 08/06/2020 and 04/26/2018. FINDINGS: Lower Chest: Normal. No effusions. Liver: Rounded fluid bright focus superior right lobe anterior segment (segment 8). Normal hepatic parenchymal enhancement. No suspicious liver lesion. Biliary: Normal. No biliary ductal dilatation. Spleen: Normal. No splenomegaly or focal lesions. Pancreas: Redemonstration of cystic pancreatic foci within the pancreatic head posteriorly measuring approximately 8 x 11 x 17 mm and within the posterior distal body/pancreatic tail measuring 11 x 13 mm. No pancreatic ductal dilation. Adrenal Glands: Normal. No nodules. Kidneys/Ureters: Small cystic foci measuring less than 1 cm diameter. No suspicious renal lesion. No hydronephrosis. Bowel: Normal. No dilatation or wall thickening. Small moderate size sliding- type hiatal hernia. Peritoneum/Retroperitoneum: Normal. No masses or fluid. Lymph Nodes: Normal. No lymphadenopathy. Vessels: Normal. No abdominal aortic aneurysm. Bones/Soft Tissues: Unchanged. Moderate severity scoliosis convex right thoracolumbar junction. No focal marrow replacing lesions. Procedure Note Vikash Castañeda MD - 08/04/2022 MRI CHOLANGIOPANCREATOGRAPHY (MRCP) WITH AND WITHOUT CONTRAST History: Follow-up cystic pancreatic masses (IPMN). TECHNIQUE: Multiplanar MR imaging of the abdomen was performed using T1,T2, fat saturated, and diffusion weighted techniques. 2D and 3D MRCPsequences were performed. Dynamic multiphase imaging was also performedafter administration of an intravenous gadolinium contrast agent. COMPARISON: Multiple preceding MR abdomen studies, most recently from08/06/2020 and 04/26/2018. FINDINGS: Lower Chest: Normal. No effusions. Liver: Rounded fluid bright focus superior right lobe anterior segment(segment 8). Normal hepatic parenchymal enhancement. No suspicious liverlesion. Biliary: Normal. No biliary ductal dilatation. Spleen: Normal. No splenomegaly or focal lesions. Pancreas: Redemonstration of cystic pancreatic foci within the pancreatichead posteriorly measuring approximately 8 x 11 x 17 mm and within theposterior distal body/pancreatic tail measuring 11 x 13 mm. No pancreaticductal dilation. Adrenal Glands: Normal. No nodules. Kidneys/Ureters: Small cystic foci measuring less than 1 cm diameter. Nosuspicious renal lesion. No hydronephrosis. Bowel: Normal. No dilatation or wall thickening. Small moderate sizesliding-type hiatal hernia. Peritoneum/Retroperitoneum: Normal. No masses or fluid. Lymph Nodes: Normal. No lymphadenopathy. Vessels: Normal. No abdominal aortic aneurysm. Bones/Soft Tissues: Unchanged. Moderate severity scoliosis convex rightthoracolumbar junction. No focal marrow replacing lesions. IMPRESSION: 1. Stable appearance to cystic pancreatic lesions affecting pancreatichead and distal body/tail, without pancreatic ductal dilation, featureswhich favor sidebranch nonmalignant IPMN. 2. No concerning incidental abnormality. Marcus Reeves MD IMG MR ABDOMEN Final Result documented in this encounter Visit Diagnoses Diagnosis IPMN (intraductal papillary mucinous neoplasm) Neoplasm of unspecified nature of digestive system IPMN (intraductal papillary mucinous neoplasm) Neoplasm of unspecified nature of digestive system documented in this encounter Care Teams Curator Of Photography And Prints Relationship Specialty Start Date End Date Unknown, Unknown, PCP - General 08/04/22 documented as of this encounter Additional Source Comments The information contained in this document represents components of the legal health record. It is not the complete legal health record.[facility]
--- OUTSIDE RECORDS SUMMARY | 2025-05-29 09:11 | XMS_ITS | Encounter Summary ---
Author Organization [facility] Address [address] [place] [address] Phone Care Team Providers Care Mathematics Teacher Name Role Phone Carrol Stinson MD Primary Care Provi mady Unknown, Unknown Primary Care Provider Jadiel diaz Encounter Details Date Type Department Care Team (Latest Contact Info) Description 06/11/2018 Transcribe Orders [facility] [address] [place] [address] Marcus Reeves MD [address] [place] [phone] [email or web address] Pancreatic abnormality (Primary Dx) Social History Tobacco [...] as of this encounter Results * (ABNORMAL) CBC and differential (06/11/2018 11:25 AM EDT) WBC 5.97 3.40 - 11.20 K/uL [facility] RBC 4.52 3.80 - 4.80 M/uL [facility] HGB 13.1 12.0 - 15.0 g/dL [facility] HCT 37.6 36.0 - 46.0 % [facility] PLT 260 130 - 400 K/uL [facility] MCV 83.2 79.0 - 98.0 fL [facility] MCH 29.0 27.0 - 34.8 pg [facility] MCHC 34.8 31.5 - 36.0 g/dL [facility] RDW 13.6 10.8 - 14.6 % [facility] MPV 9.9 9.4 - 12.4 fl [facility] NRBC 0.00 /100 WBCs [facility] ABSOLUTE NRBC 0.00 K/uL [facility] DIFF METHOD Auto [facility] NEUTS 46.6 45.30 - 77.70 % [facility] LYMPHS 43.4(H) 12.30 - 39.70 % [facility] MONOS 6.4 4.10 - 12.80 % [facility] EOS 2.7 0 - 7.2 % [facility] BASOS 0.7 0 - 2.80 % [facility] Granulocytes, immature (%) 0.2 0.0 - 0.9 % [facility] ABSOLUTE NEUTS 2.79 1.40 - 7.70 K/uL [facility] ABSOLUTE LYMPHS 2.59 0.60 - 3.20 K/uL [facility] ABSOLUTE MONOS 0.38 0.11 - 0.59 K/uL [facility] ABSOLUTE EOS 0.16 0.01 - 0.50 K/uL [facility] ABSOLUTE BASOS 0.04 0.00 - 0.08 K/uL [facility] Granulocytes, immature 0.01 0.00 - 0.05 K/uL [facility] Blood 06/11/2018 11:2 5 AM EDT 06/11/2018 11:39 AM EDT us Marcus Reeves MD LAB BLOOD ORDERABLES Final R esult [facility] [address] [place] [address] * (ABNORMAL) GGT (Gamma glutamyl transferase) (06/11/2018 11:25 AM EDT) GGT 34(H) 7 - 33 U/L [facility] Blood 06/11/2018 11:2 5 AM EDT 06/11/2018 11:39 AM EDT us Marcus Reeves MD LAB BLOOD ORDERABLES Final R esult [facility] [address] [place] [address] documented in this encounter Visit Diagnoses Diagnosis Pancreatic abnormality- Primary documented in this encounter Care Teams Mathematics Teacher Relationship Specialty Start Date End Date Carrol Stinson MD [email or web address] PCP - General Internal Medicine 09/28/17 Unknown, Unknown, PCP - General 08/04/22 documented as of this encounter Additional Source Comments The information contained in this document represents components of the legal health record. It is not the complete legal health record.[facility]
--- OUTSIDE RECORDS SUMMARY | 2025-05-29 09:11 | XMS_ITS | Encounter Summary ---
Author Organization [facility] Address [address] [place] [address] Phone Care Team Providers Care Artist Consultant Name Role Phone Unknown, Unknown Primary Care Provider Jadiel diaz Reason for Referral * MRI/CAT Scan - Closed Specialty Diagnoses / Procedures Referred By Sana baker Referred To Contact Radiology Diagnoses White matter disease Numbness Procedures MRI Brain Adal Dotson MD [address] [place] [address], [address] [place] [address] Phone: tel: fax: [email or web address] Referral ID Status Reason Start Date Expiration Date Visits Re quested Visits Authorized [id number] Closed 03/20/2024 03/20/2025 1 1 * Outpatient Procedure - Closed Specialty Diagnoses / Procedures Referred By Sana baker Referred To Contact Radiology Diagnoses TIA (transient ischemic attack) Procedures US Carotid Duplex Complete (Bilateral) Adal Dotson MD [address] [place] [address], [address] [place] [address] Phone: tel: fax: [email or web address] Referral ID Status Reason Start Date Expiration Date Visits Re quested Visits Authorized [id number] Closed 03/20/2024 03/20/2025 1 1 Encounter Details Date Type Department Care Team (Latest Contact Info) Description 03/20/2024 Transcribe Orders Virtual Department [address] [place] [phone] Adal Dotson MD [address] [place] [address], [address] [place] [address] [email or web address] TIA (transient ischemic attack) (Primary Dx); White matter disease; Numbness Social History Tobacco Use Types Packs/Day Years [...] as of this encounter Results * MRI BRAIN WITH AND WITHOUT CONTRAST (05/09/2024 10:19 AM EDT) Anatomical Region Laterality Modality Head Magnetic Resonan ce 05/12/2024 11:3 5 AM EDT Impressions 05/12/2024 11:59 AM EDT 1. No acute intracranial infarction, hemorrhage or mass-effect. No abnormal intracranial enhancement. Narrative 05/12/2024 11:59 AM EDT MRI BRAIN WITH AND WITHOUT CONTRAST Referring clinician's provided indication for this examination in Epic: Outside Radiology Order; white matter TECHNIQUE: MRI BRAIN WITH AND WITHOUT CONTRAST Multi-sequence, multi-planar MRI of the brain was performed before and after intravenous contrast. COMPARISON: None FINDINGS: Brain Parenchyma: No evidence of acute infarct, mass, hemorrhage or abnormal enhancement. There are scattered foci of T2 hyperintensity in the white matter, likely a manifestation of chronic small vessel disease. Ventricular System and Extra-Axial Spaces: The ventricles and cortical sulci are prominent, as commonly seen in patients of this age. No evidence of midline shift or hydrocephalus. Partially empty sella. Extracranial Structures: Expected arterial flow signal is observed at the skull base. Left maxillary sinus disease with small mucous retention cyst. Procedure Note Cornell King MD, PhD - 05/12/2024 MRI BRAIN WITH AND WITHOUT CONTRAST Referring clinician's provided indication for this examination in [facility]:Outside Radiology Order; white matter TECHNIQUE: MRI BRAIN WITH AND WITHOUT CONTRAST Multi-sequence, multi-planar MRI of the brain was performed before andafter intravenous contrast. COMPARISON: None FINDINGS: Brain Parenchyma: No evidence of acute infarct, mass, hemorrhage orabnormal enhancement. There are scattered foci of T2 hyperintensity in thewhite matter, likely a manifestation of chronic small vessel disease. Ventricular System and Extra-Axial Spaces: The ventricles and corticalsulci are prominent, as commonly seen in patients of this age. No evidenceof midline shift or hydrocephalus. Partially empty sella. Extracranial Structures: Expected arterial flow signal is observed at theskull base. Left maxillary sinus disease with small mucous retentioncyst. IMPRESSION: 1. No acute intracranial infarction, hemorrhage or mass-effect. Noabnormal intracranial enhancement. us Adal Dotson MD [facility] MR HEAD/NECK Final Resul t * US Carotid Duplex Complete (Bilateral) (03/20/2024 3:56 PM EDT) Anatomical Region Laterality Modality Heart, Thoracic Vasculature, Neck Ultrasound 03/20/2024 4:10 PM EDT Narrative 03/21/2024 5:54 PM EDT US CAROTID DUPLEX COMPLETE (BILATERAL) Referring clinician's provided indication for this examination in [facility]: Outside Radiology Order; tia TECHNIQUE: A duplex ultrasound evaluation of the common carotid, internal carotid, external carotid, vertebral, and subclavian arteries was performed using mason scale, color duplex and spectral Doppler analysis. COMPARISON: Previous Carotid Ultrasound of 10/14/2018. FINDINGS: Exam Quality: Technically adequate exam demonstrates: RIGHT Common Carotid Artery (cm/s): Proximal Systolic: 90 Proximal Diastolic: 26 Distal Systolic: 79 Distal Diastolic: 23 Internal Carotid Artery (cm/s): Proximal Systolic: 70 Proximal Diastolic: 25 Mid Systolic: 69 Mid Diastolic: 34 Distal Systolic: 72 Distal Diastolic: 34 External Carotid Artery (cm/s): Systolic: 109 Diastolic: 20 Vertebral Artery (cm/s): Systolic: 85 Diastolic: 28 Subclavian Artery (cm/s): Systolic: 99 Diastolic: 0 ICA/CCA Ratio: 0.9 ICA Stenosis: Normal ICA Plaque: None Visualized LEFT Common Carotid Artery (cm/s): Proximal Systolic: 107 Proximal Diastolic: 25 Distal Systolic: 82 Distal Diastolic: 23 Internal Carotid Artery (cm/s): Proximal Systolic: 65 Proximal Diastolic: 21 Mid Systolic: 92 Mid Diastolic: 27 Distal Systolic: 64 Distal Diastolic: 27 External Carotid Artery (cm/s): Systolic: 62 Diastolic: 19 Vertebral Artery (cm/s): Systolic: 44 Diastolic: 15 Subclavian Artery(cm/s): Systolic: 130 Diastolic: 0 ICA/CCA Ratio: 1.1 ICA Stenosis: Normal ICA Plaque: None Visualized Abbreviations: CCA = Common Carotid Artery. ICA = Internal Carotid Artery. ECA = External Carotid Artery. Vert = Vertebral Artery. ICA/CCA Ratio = maximal ICA PSV divided by the distal CCA PSV. DIRECT TEST FINDINGS: Right: Doppler flow velocities and waveform contours are within normal limits throughout the right internal carotid artery, no plaque is visualized. No plaque is visualized in the right common carotid artery. Unremarkable right external carotid artery. Anterograde flow is noted in the right vertebral artery. The right subclavian artery is patent. Left: Doppler flow velocities and waveform contours are within normal limits throughout the left internal carotid artery, no plaque is visualized. No plaque is visualized in the left common carotid artery. Unremarkable left external carotid artery. Antegrade flow is noted in the left vertebral artery. The left subclavian artery is patent. IMPRESSIONS: Compared to the prior carotid ultrasound of 10/14/2018: 1. No stenosis noted in the right internal carotid artery. 2. No stenosis noted in the left internal carotid artery. 3. No stenosis is noted in the common carotid arteries bilaterally. 4. Unremarkable external carotid arteries bilaterally. 5. Antegrade flow in the bilateral cervical vertebral arteries. 6. Normal examination of the bilateral subclavian arteries. STENOSIS: Internal carotid artery stenosis by duplex ultrasonography has been validated by comparing findings with angiographic stenosis. NASCET methods were used, where the most severe stenosis represents the numerator, and the normal internal carotid artery diameter distal to the stenosis where the jaramillo are parallel represents the denominator. Procedure Note Gerber Ward MD - 03/21/2024 US CAROTID DUPLEX COMPLETE (BILATERAL) Referring clinician's provided indication for this examination in Epic:Outside Radiology Order; tia TECHNIQUE: A duplex ultrasound evaluation of the common carotid, internalcarotid, external carotid, vertebral, and subclavian arteries wasperformed using mason scale, color duplex and spectral Doppler analysis. COMPARISON: Previous Carotid Ultrasound of 10/14/2018. FINDINGS: Exam Quality: Technically adequate exam demonstrates: RIGHT Common Carotid Artery (cm/s): Proximal Systolic: 90 Proximal Diastolic: 26 Distal Systolic: 79 Distal Diastolic: 23 Internal Carotid Artery (cm/s): Proximal Systolic: 70 Proximal Diastolic: 25 Mid Systolic: 69 Mid Diastolic: 34 Distal Systolic: 72 Distal Diastolic: 34 External Carotid Artery (cm/s): Systolic: 109 Diastolic: 20 Vertebral Artery (cm/s): Systolic: 85 Diastolic: 28 Subclavian Artery (cm/s): Systolic: 99 Diastolic: 0 ICA/CCA Ratio: 0.9 ICA Stenosis: Normal ICA Plaque: None Visualized LEFT Common Carotid Artery (cm/s): Proximal Systolic: 107 Proximal Diastolic: 25 Distal Systolic: 82 Distal Diastolic: 23 Internal Carotid Artery (cm/s): Proximal Systolic: 65 Proximal Diastolic: 21 Mid Systolic: 92 Mid Diastolic: 27 Distal Systolic: 64 Distal Diastolic: 27 External Carotid Artery (cm/s): Systolic: 62 Diastolic: 19 Vertebral Artery (cm/s): Systolic: 44 Diastolic: 15 Subclavian Artery(cm/s): Systolic: 130 Diastolic: 0 ICA/CCA Ratio: 1.1 ICA Stenosis: Normal ICA Plaque: None Visualized Abbreviations: CCA = Common Carotid Artery. ICA = Internal Carotid Artery. ECA =External Carotid Artery. Vert = Vertebral Artery. ICA/CCA Ratio = maximalICA PSV divided by the distal CCA PSV. DIRECT TEST FINDINGS: Right: Doppler flow velocities and waveform contours are within normallimits throughout the right internal carotid artery, no plaque isvisualized. No plaque is visualized in the right common carotid artery.Unremarkable right external carotid artery. Anterograde flow is noted inthe right vertebral artery. The right subclavian artery is patent. Left: Doppler flow velocities and waveform contours are within normallimits throughout the left internal carotid artery, no plaque isvisualized. No plaque is visualized in the left common carotid artery.Unremarkable left external carotid artery. Antegrade flow is noted in theleft vertebral artery. The left subclavian artery is patent. IMPRESSIONS: Compared to the prior carotid ultrasound of 10/14/2018: 1. No stenosis noted in the right internal carotid artery. 2. No stenosis noted in the left internal carotid artery. 3. No stenosis is noted in the common carotid arteries bilaterally. 4. Unremarkable external carotid arteries bilaterally. 5. Antegrade flow in the bilateral cervical vertebral arteries. 6. Normal examination of the bilateral subclavian arteries. STENOSIS: Internal carotid artery stenosis by duplex ultrasonography hasbeen validated by comparing findings with angiographic stenosis. NASCETmethods were used, where the most severe stenosis represents thenumerator, and the normal internal carotid artery diameter distal to thestenosis where the jaramillo are parallel represents the denominator. us Adal Dotson MD CV US NEUROVASCULAR Final Re sult documented in this encounter Visit Diagnoses Diagnosis TIA (transient ischemic attack)- Primary Unspecified transient cerebral ischemia White matter disease Numbness Disturbance of skin sensation TIA (transient ischemic attack) Unspecified transient cerebral ischemia White matter disease Numbness Disturbance of skin sensation documented in this encounter Care Teams Artist Consultant Relationship Specialty Start Date End Date Unknown, Unknown, PCP - General 08/04/22 documented as of this encounter Additional Source Comments The information contained in this document represents components of the legal health record. It is not the complete legal health record.[facility]
--- OUTSIDE RECORDS SUMMARY | 2025-05-29 09:12 | XMS_ITS | Encounter Summary ---
Author Organization [facility] Address [address] [place] [address] Phone Care Team Providers Care Supervisor Feed House Name Role Phone Carrol Stinson MD Primary Care Provi mady Unknown, Unknown Primary Care Provider Jadiel diaz Encounter Details Date Type Department Care Team (Late st Contact Info) Description 10/03/2018 Ancillary Orders Virtual Department [address] [place] [address] Adal Dotson MD [address] [place] [address], [address] [place], [place] [id number] [email or web address] TIA (transient ischemic attack) Social History Tobacco Use Types Packs/Day Years [...] documented as of this encounter Results * US Carotid Duplex (Bilateral) (10/14/2018 12:02 PM EST) Anatomical Region Laterality Modality Heart, Thoracic Vasculature, Neck Ultrasound 10/14/2018 2:24 PM EST Impressions 10/14/2018 2:28 PM EST Right: No atherosclerotic disease demonstrated on today's study. Left: Small amount of hard plaque at the carotid bulb results in mild (less than 50%) stenosis of the internal carotid artery. POS - [id number] Narrative 10/14/2018 2:28 PM EST EXAM: US CAROTID DUPLEX (BILATERAL) COMPARISON:September 03, 2007 CAROTID ULTRASOUND FINDINGS: RIGHT: Peak external carotid artery: 95 cm/sec Peak vertebral: 43 cm/sec and antegrade Peak common carotid artery: 87 cm/sec Peak internal carotid artery: 87 cm/sec Carotid artery morphology: No plaques seen. Peak systolic ratio is normal. LEFT: Peak external carotid artery: 74 cm/sec Peak vertebral: 43 cm/sec and antegrade Peak common carotid artery: 84 cm/sec Peak internal carotid artery: 64 cm/sec Carotid artery morphology: Small amount of hard plaque at the carotid bulb Peak systolic ratio is normal. Any stenosis measurement is relative to the distal ICA diameters. Procedure Note Lana Magana MD - 10/14/2018 EXAM: US CAROTID DUPLEX (BILATERAL) COMPARISON:September 03, 2007 CAROTID ULTRASOUND FINDINGS: RIGHT: Peak external carotid artery: 95 cm/sec Peak vertebral: 43 cm/sec and antegrade Peak common carotid artery: 87 cm/sec Peak internal carotid artery: 87 cm/sec Carotid artery morphology: No plaques seen. Peak systolic ratio is normal. LEFT: Peak external carotid artery: 74 cm/sec Peak vertebral: 43 cm/sec and antegrade Peak common carotid artery: 84 cm/sec Peak internal carotid artery: 64 cm/sec Carotid artery morphology: Small amount of hard plaque at the carotidbulb Peak systolic ratio is normal. Any stenosis measurement is relative to the distal ICA diameters. IMPRESSION: Right: No atherosclerotic disease demonstrated on today's study. Left: Small amount of hard plaque at the carotid bulb results in mild(less than 50%) stenosis of the internal carotid artery. POS - [id number] Adal Dotson MD US NEUROVASCULAR Final Re sult documented in this encounter Visit Diagnoses Diagnosis TIA (transient ischemic attack) Unspecified transient cerebral ischemia TIA (transient ischemic attack) Unspecified transient cerebral ischemia documented in this encounter Care Teams Supervisor Feed House Relationship Specialty Start Date End Date Carrol Stinson MD [email or web address] PCP - General Internal Medicine 09/28/17 Unknown, Unknown, PCP - General 08/04/22 documented as of this encounter Additional Source Comments The information contained in this document represents components of the legal health record. It is not the complete legal health record.[facility]
--- OUTSIDE RECORDS SUMMARY | 2025-05-29 09:12 | XMS_ITS | Encounter Summary ---
Author Organization [facility] Address [address] [place] [phone] Phone Care Team Providers Care Qc Chemist Name Role Phone Carrol Stinson MD Primary Care Provi mady Unknown, Unknown Primary Care Provider Jadiel diaz Encounter Details Date Type Department Care Team (Late st Contact Info) Description 04/17/2018 Procedure Pass [facility], [address] [address] Social History Tobacco Use Types Packs/Day Years [...] on filedocumented in this encounter Care Teams Qc Chemist Relationship Specialty Start Date End Date Carrol Stinson MD [email or web address] PCP - General Internal Medicine 09/28/17 Unknown, Unknown, PCP - General 08/04/22 documented as of this encounter Additional Source Comments The information contained in this document represents components of the legal health record. It is not the complete legal health record.[facility]
--- OUTSIDE RECORDS SUMMARY | 2025-05-29 09:12 | XMS_ITS | Encounter Summary ---
Author Organization [facility] Address [address] [place] [address] Phone Care Team Providers Care Reconditioning Associate Name Role Phone Carrol Stinson MD Primary Care Provi mady Unknown, Unknown Primary Care Provider Jadiel diaz Encounter Details Date Type Department Care Team (Late st Contact Info) Description 12/17/2018 Procedure Pass [facility], [address] [address] Social History Tobacco Use Types Packs/Day Years [...] on filedocumented in this encounter Care Teams Reconditioning Associate Relationship Specialty Start Date End Date Carrol Stinson MD [email or web address] PCP - General Internal Medicine 09/28/17 Unknown, Unknown, PCP - General 08/04/22 documented as of this encounter Additional Source Comments The information contained in this document represents components of the legal health record. It is not the complete legal health record.[facility]
--- OUTSIDE RECORDS SUMMARY | 2025-05-29 09:12 | XMS_ITS | Encounter Summary ---
Author Organization [facility] Address [address] [place] [address] Phone Care Team Providers Care Metal Lather Name Role Phone Unknown, Unknown Primary Care Provider Jadiel diaz Encounter Details Date Type Department Care Team (Late st Contact Info) Description 08/07/2024 Procedure Pass [facility], [address] [address] Social History Tobacco Use Types Packs/Day Years [...] on filedocumented in this encounter Care Teams Metal Lather Relationship Specialty Start Date End Date Unknown, Unknown, PCP - General 08/04/22 documented as of this encounter Additional Source Comments The information contained in this document represents components of the legal health record. It is not the complete legal health record.[facility]
--- OUTSIDE RECORDS SUMMARY | 2025-05-29 09:12 | XMS_ITS | Encounter Summary ---
Author Organization [facility] Address [address] [place] [address] Phone Care Team Providers Care Provider Enrollment Specialist Name Role Phone Carrol Stinson MD Primary Care Provi mady Unknown, Unknown Primary Care Provider Jadiel diaz Encounter Details Date Type Department Care Team (Late st Contact Info) Description 06/11/2018 Transcribe Orders [facility] [address] [place] [address] Carrol Stinson MD [address] [place] [phone] [email or web address] Pancreatic abnormality (Primary Dx) Social History Tobacco [...] as of this encounter Visit Diagnoses Diagnosis Pancreatic abnormality- Primary documented in this encounter Care Teams Provider Enrollment Specialist Relationship Specialty Start Date End Date Carrol Stinson MD [email or web address] PCP - General Internal Medicine 09/28/17 Unknown, Jennifer, PCP - General 08/04/22 documented as of this encounter Additional Source Comments The information contained in this document represents components of the legal health record. It is not the complete legal health record.[facility]
--- OUTSIDE RECORDS SUMMARY | 2025-05-29 09:12 | XMS_ITS | Encounter Summary ---
Author Organization [facility] Address [address] [place] [address] Phone Care Team Providers Care Freight Forwarder Name Role Phone Carrol Stinson MD Primary Care Provi mady Unknown, Unknown Primary Care Provider Jadiel diaz Encounter Details Date Type Department Care Team (Late st Contact Info) Description 07/07/2020 Procedure Pass [facility], [address] [place] [address] Social History Tobacco Use Types Packs/Day Years [...] on filedocumented in this encounter Care Teams Freight Forwarder Relationship Specialty Start Date End Date Carrol Stinson MD [email or web address] PCP - General Internal Medicine 09/28/17 Unknown, Unknown, PCP - General 08/04/22 documented as of this encounter Additional Source Comments The information contained in this document represents components of the legal health record. It is not the complete legal health record.[facility]
--- OUTSIDE RECORDS SUMMARY | 2025-05-29 09:12 | XMS_ITS | Encounter Summary ---
Author Organization [facility] Address [address] [place] [address] Phone Care Team Providers Care Coal Gasification Technician Name Role Phone Carrol Stinson MD Primary Care Provi mady Unknown, Unknown Primary Care Provider Jadiel diaz Encounter Details Date Type Department Care Team (Late st Contact Info) Description 06/11/2018 Transcribe Orders [facility] [address] [place] [address] Marcus Reeves MD [address] [place] [phone] [email or web address] Social History Tobacco Use Types Packs/Day Years [...] on filedocumented in this encounter Care Teams Coal Gasification Technician Relationship Specialty Start Date End Date Carrol Stinson MD [email or web address] PCP - General Internal Medicine 09/28/17 Unknown, Jennifer, PCP - General 08/04/22 documented as of this encounter Additional Source Comments The information contained in this document represents components of the legal health record. It is not the complete legal health record.[facility]
--- OUTSIDE RECORDS SUMMARY | 2025-05-29 09:12 | XMS_ITS | Encounter Summary ---
Author Organization [facility] Address [address] [place] [phone] Phone Care Team Providers Care Dairy Science Teacher Name Role Phone Carrol Stinson MD Primary Care Provi mady Unknown, Unknown Primary Care Provider Jadiel diaz Reason for Referral * MRI/CAT Scan - Closed Specialty Diagnoses / Procedures Referred By Sana baker Referred To Contact Radiology Diagnoses Liver lesion IPMN (intraductal papillary mucinous neoplasm) Procedures MRI Cholangiopancreatography (MRCP) Marcus Reeves MD Phone: tel: fax: [email or web address] Referral ID Status Reason Start Date Expiration Date Visits Re quested Visits Authorized [id number] Closed 07/07/2020 07/07/2021 1 1 Encounter Details Date Type Department Care Team (Latest Contact Info) Description 07/07/2020 Transcribe Orders Virtual Department [address] [place] [address] Marcus Reeves MD [address] [place] [phone] [email or web address] Liver lesion (Primary Dx); IPMN (intraductal papillary mucinous neoplasm) Social History [...] MRI CHOLANGIOPANCREATOGRAPHY (MRCP) WITH AND WITHOUT CONTRAST (08/06/2020 10:28 AM EST) Anatomical Region Laterality Modality Pancreas, Biliary Magnetic Reson ance 08/06/2020 10:3 2 AM EST Impressions 08/06/2020 10:55 AM EST 1. No change in cystic pancreatic lesions. No new pancreatic pathology. 2. Stable hyperenhancing right hepatic lesion since 2012. No new liver pathology. 3. Slight increase in the size of the spleen now borderline splenomegaly without focal masses. 4. Stable chronic extrahepatic biliary dilatation without signs of choledocholithiasis or obstructing mass. POS [id number] Narrative 08/06/2020 10:55 AM EST TECHNIQUE: 1.5 Tatianna scanner. Imaging without and with contrast; pancreatic protocol/MRCP. Multiple comparisons, most recently 04/26/2018. FINDINGS: Previously noted lobulated 12 mm cystic lesion lower pancreatic head unchanged. Adjacent tiny cystic areas in the uncinate process unchanged. 11 mm cystic lesion in the posterior proximal pancreatic tail unchanged. No new cystic or solid pancreatic masses. No signs of pancreatitis. No pancreatic ductal dilatation. Chronic ill-defined, roughly 14 mm hyperenhancing lesion in the lower right lobe of the liver unchanged back to 2013 and therefore almost certainly benign. Scattered tiny hepatic cysts unchanged. No new liver masses. No hepatic enlargement or steatosis. Chronic borderline splenomegaly with the craniocaudad span of 12.8 cm slightly increased from about 11.1 cm in 2018. No focal splenic masses. No gallstones, gallbladder wall thickening or pericholecystic fluid. Stable chronic extrahepatic biliary dilatation. CBD up to 8 to 9 mm as it enters the pancreas. No filling defects. No intrahepatic dilatation or biliary duct irregularity. No adrenal pathology. Tiny renal cortical cysts but no solid renal masses. No adenopathy, ascites or pleural effusion. Small hiatal hernia unchanged. Procedure Note Peyman Martin MD - 08/06/2020 TECHNIQUE: 1.5 Tatianna scanner. Imaging without and with contrast;pancreatic protocol/MRCP. Multiple comparisons, most recently 04/26/2018. FINDINGS: Previously noted lobulated 12 mm cystic lesion lower pancreatic headunchanged. Adjacent tiny cystic areas in the uncinate process unchanged. 11 mm cystic lesion in the posterior proximal pancreatic tail unchanged. No new cystic or solid pancreatic masses. No signs of pancreatitis. No pancreatic ductal dilatation. Chronic ill-defined, roughly 14 mm hyperenhancing lesion in the lowerright lobe of the liver unchanged back to 2013 and therefore almostcertainly benign. Scattered tiny hepatic cysts unchanged. No new liver masses. No hepatic enlargement or steatosis. Chronic borderline splenomegaly with the craniocaudad span of 12.8 cmslightly increased from about 11.1 cm in 2018. No focal splenic masses. No gallstones, gallbladder wall thickening or pericholecystic fluid. Stable chronic extrahepatic biliary dilatation. CBD up to 8 to 9 mm as itenters the pancreas. No filling defects. No intrahepatic dilatation orbiliary duct irregularity. No adrenal pathology. Tiny renal cortical cysts but no solid renal masses. No adenopathy, ascites or pleural effusion. Small hiatal hernia unchanged. IMPRESSION: 1. No change in cystic pancreatic lesions. No new pancreatic pathology. 2. Stable hyperenhancing right hepatic lesion since 2012. No new liverpathology. 3. Slight increase in the size of the spleen now borderline splenomegalywithout focal masses. 4. Stable chronic extrahepatic biliary dilatation without signs ofcholedocholithiasis or obstructing mass. POS [id number] Marcus Reeves MD IMG MR ABDOMEN Final Result documented in this encounter Visit Diagnoses Diagnosis Liver lesion- Primary Other specified disorders of liver IPMN (intraductal papillary mucinous neoplasm) Neoplasm of unspecified nature of digestive system Liver lesion Other specified disorders of liver IPMN (intraductal papillary mucinous neoplasm) Neoplasm of unspecified nature of digestive system documented in this encounter Care Teams Dairy Science Teacher Relationship Specialty Start Date End Date Carrol Stinson MD [email or web address] PCP - General Internal Medicine 09/28/17 Unknown, Unknown, MD PCP - General 08/04/22 documented as of this encounter Additional Source Comments The information contained in this document represents components of the legal health record. It is not the complete legal health record.[facility]
--- OUTSIDE RECORDS SUMMARY | 2025-05-29 09:12 | XMS_ITS ---
Author Name [facility] Organization Unknown History of Medication Use Medication Directions Dispensed Refills Start Date End Date Stat us ketoconazole (NIZORAL) 2 % cream APPLY TWICE DAILY TO AFFECTED AREAS UNTIL CLEAR 04/30/2025 active Klayesta [id number] UNIT/GM powder 04/30/2025 active HYDROcodone-acetamino phen (NORCO) 5-325 mg per tablet Take 1 tablet by mouth. 04/17/2025 05/04/2025 aborted ALPRAZolam (XANAX) 0.25 MG tablet Take 0.25 mg by mouth. 04/17/2025 active Vitamin B6 50 MG tablet Take 50 mg by mouth. 02/28/2025 active gabapentin (NEURONTIN) 600 MG tablet TAKE 1 TABLET BY MOUTH THREE TIMES DAILY NEEDED FOR NERVE PAIN active rosuvastatin (CRESTOR) 5 MG tablet Take 5 mg by mouth. active sertraline (ZOLOFT) 25 MG tablet Take 25 mg by mouth daily. active spironolactone (ALDACTONE) 25 MG tablet Take 25 mg by mouth daily. active Allergies Allergen Reaction Severity Comment Documented Date Source Statu s OXYCODONE-ACETAMINOP HEN ITCHING 08/05/2015 [facility] active IODINATED CONTRAST MEDIA UNKNOWN/PATIENT AND FAMILY UNABLE TO DEFINE 11/27/2001 [facility] active Problems Problem Status Onset Date Problem Type Date of Resoluti on Source IPMN (intraductal papillary mucinous neoplasm) active EncounterDiagnosisAct [facility] History of colon polyps [facility] En[facility] Encounter Type Encounter Reason Primary Diagnosis Location Date Ambulatory Follow-up Follow-up [facility] 05/04/2025 Care Team Organization Name Specialty Phone Email Start Date End Da denise [facility] 05/04/2025 [facility] 03/04/2025 [facility] 01/12/2025
--- OUTSIDE RECORDS SUMMARY | 2025-05-29 09:12 | XMS_ITS | Encounter Summary ---
Author Organization [facility] Address [address] [place] [address] Phone Care Team Providers Care Char Filter Operator Name Role Phone Carrol Stinson MD Primary Care Provi mady Unknown, Unknown Primary Care Provider Jadiel diaz Encounter Details Date Type Department Care Team (Latest Contact Info) Description 12/17/2018 Transcribe Orders Virtual Department [address] [place] [phone] Adal Dotson MD [address] [place] [address], [address] [place], [place] [phone] [email or web address] Weakness of distal arms and legs (Primary Dx) Social History Tobacco Use Types [...] as of this encounter Visit Diagnoses Diagnosis Weakness of distal arms and legs- Primary documented in this encounter Care Teams Char Filter Operator Relationship Specialty Start Date End Date Carrol Stinson MD [email or web address] PCP - General Internal Medicine 09/28/17 Unknown, Unknown, PCP - General 08/04/22 documented as of this encounter Additional Source Comments The information contained in this document represents components of the legal health record. It is not the complete legal health record.[facility]
--- OUTSIDE RECORDS SUMMARY | 2025-05-29 09:12 | XMS_ITS | Encounter Summary ---
Author Organization [facility] Address [address] [place] [phone] Phone Care Team Providers Care Relay Telegrapher Name Role Phone Carrol Stinson MD Primary Care Provi mady Unknown, Unknown Primary Care Provider Jadiel diaz Reason for Referral * MRI/CAT Scan - Closed Specialty Diagnoses / Procedures Referred By Sana baker Referred To Contact Radiology Diagnoses Weakness of distal arms and legs White matter disease Procedures MRI Thoracic Spine MRI Thoracic Spine Adal Dotson MD Phone: tel: fax: [email or web address] Referral ID Status Reason Start Date Expiration Date Visits Re quested Visits Authorized [id number] Closed 12/17/2018 12/17/2019 1 1 Encounter Details Date Type Department Care Team (Late st Contact Info) Description 12/17/2018 Ancillary Orders Virtual Department [address] [place] [address] Adal Dotson MD [address] [place] [address], [address] [place] [address] [email or web address] Weakness of distal arms and legs; White matter disease Social History Tobacco Use Types Packs/Day Years [...] as of this encounter Results * MRI THORACIC SPINE (NEURO) WITHOUT CONTRAST (01/13/2019 8:20 AM EDT) Anatomical Region Laterality Modality T-spine Magnetic Resonan ce 01/13/2019 5:44 PM EDT Impressions 01/14/2019 9:28 AM EDT No evidence for thoracic spinal cord demyelination. Normal cord signal. Normal thoracic spine alignment. No acute fracture. Multiple levels of degenerative disc disease, without any significant canal or neural foraminal stenosis. POS - [id number] Edited by: Destiny Matos on 01/14/2019 8:36 AM Narrative 01/14/2019 9:28 AM EDT EXAM: MRI THORACIC SPINE (NEURO) WITHOUT CONTRAST HISTORY: Arm weakness [sign/sx]. Weakness in arms \t\ legs, white matter disease, r/o MS. R/o MS. TECHNIQUE: Multiplanar multisequence MRI imaging of the thoracic spine with the following sequences: Sagittal STIR, sagittal T1, sagittal T2, axial T1 and axial T2 sequences. COMPARISON: None. FINDINGS: The thoracic spinal cord is normal in signal. There is no intramedullary mass or cord signal to suggest demyelination. The conus medullaris terminates at the T12-L1 level. There is mild right convex scoliotic curvature of the thoracic spine. Normal height and alignment of the thoracic vertebrae. Degenerative edematous signal endplate changes are present at T10-T11. There is no acute fracture or suspicious marrow infiltration. Mild degenerative fatty signal endplate changes are present at T4-T5, T6-T7, T8-T9, T9-T10 where there is moderate to advanced loss of disc height. Focal area of marrow fat within the posterior T2 vertebral body likely represents a hemangioma. At T3-T4, T4-T5, T7-T8, T8-T9, T9-T10, T10-T11 there is mild disc bulging with mild indentation upon the anterior thecal sac. No significant canal narrowing. No levels of significant neural foraminal stenosis. Procedure Note Seema Correa MD - 01/14/2019 EXAM: MRI THORACIC SPINE (NEURO) WITHOUT CONTRAST HISTORY: Arm weakness [sign/sx]. Weakness in arms \t\ legs, white matter disease, r/o MS. R/o MS. TECHNIQUE: Multiplanar multisequence MRI imaging of the thoracic spinewith the following sequences: Sagittal STIR, sagittal T1, sagittal T2,axial T1 and axial T2 sequences. COMPARISON: None. FINDINGS: The thoracic spinal cord is normal in signal. There is no intramedullarymass or cord signal to suggest demyelination. The conus medullaristerminates at the T12-L1 level. There is mild right convex scolioticcurvature of the thoracic spine. Normal height and alignment of the thoracic vertebrae. Degenerative edematous signal endplate changes are present at T10-T11.There is no acute fracture or suspicious marrow infiltration. Milddegenerative fatty signal endplate changes are present at T4-T5, T6-T7,T8-T9, T9-T10 where there is moderate to advanced loss of disc height.Focal area of marrow fat within the posterior T2 vertebral body likelyrepresents a hemangioma. At T3-T4, T4-T5, T7-T8, T8-T9, T9-T10, T10-T11 there is mild disc bulgingwith mild indentation upon the anterior thecal sac. No significant canalnarrowing. No levels of significant neural foraminal stenosis. IMPRESSION: No evidence for thoracic spinal cord demyelination. Normal cord signal. Normal thoracic spine alignment. No acute fracture. Multiple levels of degenerative disc disease, without any significantcanal or neural foraminal stenosis. POS - [id number] Edited by: Destiny Matos on 01/14/2019 8:36 AM Adal Dotson MD IMG MR XSPECIALTY Final Resu lt documented in this encounter Visit Diagnoses Diagnosis Weakness of distal arms and legs White matter disease Weakness of distal arms and legs White matter disease documented in this encounter Care Teams Relay Telegrapher Relationship Specialty Start Date End Date Osiecki, Carrol Shabana, MD [email or web address] PCP - General Internal Medicine 09/28/17 Unknown, Unknown, MD PCP - General 08/04/22 documented as of this encounter Additional Source Comments The information contained in this document represents components of the legal health record. It is not the complete legal health record.[facility]
[2025-05-29 10:12] LABS: MANUAL DIFF FLAG NO
[2025-05-29 10:29] LABS: Hematocrit 42.0 % (37.0-47.0); Hemoglobin 14.2 g/dl (12.0-16.0); Imm Gran Abs Auto 0.02 X10*3/uL (0.00-0.03); Imm Gran Pct Auto 0.3 % (0.0-0.4); Lymphocytes Absolute Auto 2.5 X10*3/uL (1.2-4.9); Mean Corpuscular HGB Conc 33.8 g/dl (31.0-35.0); Mean Corpuscular Hemoglobin 29.2 pg (27.0-33.0); Mean Corpuscular Volume 86.4 fL (80.0-98.0); NRBC Abs Auto 0.000 X10*3/uL (0.0-0.012); NRBC Pct Auto 0.0 /100WBC (0.0-0.2); Platelet Count 285 X10*3/uL (160-400); Red Blood Count 4.86 X10*6/uL (4.20-5.50); White Blood Count 7.7 X10*3/uL (4.8-10.8)
[2025-05-29 11:11] LABS: Alanine Aminotransferase 31 U/L (0-31); Albumin Level 4.5 g/dL (3.5-5.0); Alkaline Phosphatase 110 U/L (39-117); Anion Gap 9 (12-20); Aspartate Amino Transferase 30 U/L (5-31); Blood Urea Nitrogen 15 mg/dL (9-16); Calcium 9.3 mg/dL (8.4-10.2); Carbon Dioxide 30 mmol/L (22-29); Chloride 103 mmol/L (96-108); Cholesterol 183 mg/dL (<200); Estimated Glomerular Filt Rate > 60; HDL Cholesterol 53 mg/dL (>40); Potassium 3.3 mmol/L (3.3-5.1); Sodium 139 mmol/L (135-145); Total Protein 6.8 g/dL (6.5-8.0); Triglycerides 157 mg/dL (<150)
== END 2025-05-29 08:46 | disposition home or self-care (01) ==
LOC: HO.HMGCLDS 08:45
PROVIDERS: PCP Internal Medicine; Visit Provider Internal Medicine
DX: I10 Essential (primary) hypertension (principal); E78.00 Pure hypercholesterolemia, unspecified; G62.9 Polyneuropathy, unspecified
CPT/HCPCS: 36415; 80053; 80061; 85025